=== PATIENT | male | born 1965 ===

== ENCOUNTER 2025-05-12 06:41 | Day surgery (SDC) | payer MEDICARE, MEDICAID ==
[2025-05-12] MEDS ORDERED: Lactated Ringers 1,000 ML IV SCH (07:15)
[2025-05-12] MEDS ORDERED: fentaNYL 100 MCG/2 ML SDV ONE (07:19)
[2025-05-12] MEDS ORDERED: Propofol 200 MG/20 ML SDV ONE ×2 (07:19→09:45)
[2025-05-12] MEDS: Lactated Ringers 1,000 ML IV SCH (08:00)
[2025-05-13] MEDS ORDERED: Lactated Ringers 1,000 ML IV SCH (08:00)
== END 2025-05-12 11:00 | disposition home or self-care (01) ==
LOC: JP.SDS 06:41
PROVIDERS: ATTEND Surgery
DX: D12.4 Benign neoplasm of descending colon (principal); K63.5 Polyp of colon; K22.70 Barrett's esophagus without dysplasia; R63.4 Abnormal weight loss; I48.91 Unspecified atrial fibrillation; E11.9 Type 2 diabetes mellitus without complications; F17.200 Nicotine dependence, unspecified, uncomplicated; Z79.01 Long term (current) use of anticoagulants; Z88.5 Allergy status to narcotic agent; Z79.4 Long term (current) use of insulin; Z91.040 Latex allergy status; Z79.899 Other long term (current) drug therapy
CPT/HCPCS: 00813; 43239; 45380; J1642; J2704; J3010; J7120